=== PATIENT | female | born 1955 | race Caucasian/White ===

== ENCOUNTER 2016-11-06 19:13 | Emergency (ER) | payer MEDICAID ==
[~2016-11-06] VITALS: Ht 160 cm; Wt 76.1 kg
[2016-11-06] MEDS ORDERED: ONDANSETRON 2MG/ML, 2ML IVPush ONE (20:00)
[2016-11-06] MEDS ORDERED: SODIUM CHLORIDE FLUSH 10ML SYR IVF ONE (20:00)
[2016-11-06] MEDS ORDERED: SODIUM CHLORIDE 0.9% 1,000ML IV ONE (20:00)
[2016-11-06 20:48] LABS: BLOOD UREA NITROGEN 17 mg/dL (7-18)
[2016-11-06 21:21] LABS: PATH.CAST-FLAG NOT PRESENT; SPERM-FLAG NOT PRESENT; SRC-FLAG NOT PRESENT; XTAL-FLAG NOT PRESENT; YLC-FLAG NOT PRESENT
[2016-11-06] MEDS ORDERED: ONDANSETRON ODT 4 MG PO ONE (21:30)
[2016-11-06] MEDS ORDERED: HYDROcodone/APAP 5/325 TABLET PO ONE (21:30)
[2016-11-06] MEDS ORDERED: HYDROcodone/APAP 5/325 TABLET ONE (21:31)
[2016-11-06] MEDS ORDERED: ONDANSETRON ODT 4 MG ONE (21:31)
[2016-11-06 22:14] VITALS: BP 119/56
== END 2016-11-06 22:17 | disposition home or self-care (01) ==
LOC: ED 22:00
DX: M54.12 Radiculopathy, cervical region (principal)
CPT/HCPCS: 36415; 71020; 72050; 74176; 80048; 81001; 82040; 85025; 93005; 99285; Q0162